=== PATIENT | female | born 1955 | race Caucasian/White ===

== ENCOUNTER 2016-11-06 22:23 | Emergency (ER) | payer SELFPAY ==
[~2016-11-06] VITALS: Ht 165.1 cm; Wt 61.0 kg
[2016-11-06 22:28] VITALS: Ht 165.1 cm; Wt 61.0 kg
--- NOTE | 2016-11-07 02:23 | ERD ---
ER Documentation Chief Complaint Date/Time DATE: 11/07/16 TIME: 02:18 Chief Complaint headache x 4 days HPI 61-year-old female presents here in emergency department for complaints of frontal headache for 4 days. Patient describes the pain as throbbing pain, 6/10 scale, not better or worse with anything. Patient feels pain surrounding the eyes at times, intermittent pain. Patient denies any changes in vision. Patient had a history of subdural hematoma 20 years ago, had a surgery for this. She denies any other symptoms. Patient denies any numbness or tingling, patient denies change in balance or memory. ROS All systems reviewed and are negative except as per history of present illness. Medications Home Meds Reported Medications [none] Unknown Strength No Conflict Check 11/07/16 Allergies Allergies: Coded Allergies: No Known Allergy (Unverified , 11/06/16) PMhx/Soc History of Surgery: Yes (cranial drill from [facility]) FmHx Family History: No coronary disease, No diabetes, No other Physical Exam Vitals Vital Signs Date Time Temp Pulse Resp B/P Pulse Ox O2 Delivery O2 Flow Rate FiO2 11/06/16 22:28 98.2 71 20 146/71 98 Physical Exam GENERAL: The patient is well developed and appropriate for usual state of health, in no apparent distress. CHEST: Clear to auscultation bilaterally. There are no rales, wheezes or rhonchi. HEART: Regular rate and rhythm. No murmurs, clicks, rubs or gallops. No S3 or S4. ABDOMEN: Soft, nontender and nondistended. Good bowel sounds. No rebound or guarding. No gross peritonitis. No gross organomegaly or masses. No Barger sign or McBurney point tenderness. BACK: No midline or flank tenderness. EXTREMITIES: Equal pulses bilaterally. There is no peripheral clubbing, cyanosis or edema. No focal swelling or erythema. Full range of motion. Grossly neurovascularly intact. NEURO: Alert and oriented. Cranial nerves 2-12 intact. Motor strength in all 4 extremities with 5/5 strength. Sensation grossly intact. Normal speech and gait. negative Romberg sign. Negative pronator drift. SKIN: There is no apparent rash or petechia. The skin is warm and dry. HEMATOLOGIC AND LYMPHATIC: There is no evidence of excessive bruising or lymphedema. No gross cervical, axillary, or inguinal lymphadenopathy. Results 24 hrs PROCEDURE: CT head, without contrast. CLINICAL INDICATION: Headache with history of subdural hematoma. TECHNIQUE: Noncontrast CT examination of the head, with axial, sagittal and coronal reformatted images. Automated dose exposure control was employed. CTDI: 44.88 and DLP: 720.23 COMPARISON: None. FINDINGS: No acute hemorrhage. Subarachnoid spaces are substantially preserved and symmetric. Ventricles are unremarkable. Septum cavum and vergae variants. No mass effect. Grant-white matter distinction is preserved without evident decreased attenuation to suggest acute or recent infarct. Sinuses and osseous structures are unremarkable. IMPRESSION: No acute process in the head. RPTAT: [facility] Physician Anam Date Time Electronically viewed and signed by Physician Anam on 11/07/2016 02:30 RS/ CC: KEL CHRISTIANSEN NP Procedures/MDM Medical Decision Making: Patient symptoms are consistent with migraine headache , possible tension headache. There is low suspicion for neurological emergencies at this time since patients neurologic exam is normal. Patient did not have any altered level consciousness, vomiting, changes in balance or memory and did not have any head injury. Patients CT scan of the head does not show any neurological emergencies at this time. she was advised to follow-up with possible neurology specialist for further evaluation of headache, also see an eyeletter for eye exam. Patient was advised to return to emergency department for any worsening symptoms Rx: Fioricet Zofran Dispostion: Home. Stable Departure Diagnosis: Primary Impression: Headache Headache type: unspecified Headache chronicity pattern: acute headache Intractability: not intractable Qualified Code: R51 - Acute nonintractable headache, unspecified headache type Condition: Stable Patient Instructions: Self-Care for Headaches KEL CHRISTIANSEN NP Nov 07, 2016 02:23
--- NOTE | 2016-11-07 02:31 | RADRPT ---
PROCEDURE: CT head, without contrast. CLINICAL INDICATION: Headache with history of subdural hematoma. TECHNIQUE: Noncontrast CT examination of the head, with axial, sagittal and coronal reformatted im ages. Automated dose exposure control was employed. CTDI: 44.88 and DLP: 720.23 COMPARISON: None. FINDINGS: No acute hemorrhage. Subarachnoid spaces are substantially preserved and symmetric. Ventricles ar e unremarkable. Septum cavum and vergae variants. No mass effect. Grant-white matter distinction is preserved without evident decreased attenuation t o suggest acute or recent infarct. Sinuses and osseous structures are unremarkable. IMPRESSION: No acute process in the head. RPTAT: [facility] Physician Anam Date Time Electronically viewed and signed by Physician Anam on 11/07/2016 02:30 /
[2016-11-07] MEDS ORDERED: FIORICET PO (02:38)
[2016-11-07] MEDS ORDERED: ONDA4TAB14 PO (02:38)
[2016-11-07 03:10] VITALS: BP 146/81; PULSE 61; RESP 20
== END 2016-11-07 03:13 | disposition home or self-care (01) ==
LOC: FTE 22:23
DX: R51 Headache (principal)
CPT/HCPCS: 70450

== ENCOUNTER 2017-12-11 09:14 | Day surgery (SDC) | END 2017-12-11 11:09 | disposition home or self-care (01) ==